=== PATIENT | female | born 2000 | race African-American/Black ===

== ENCOUNTER 2021-01-02 11:52 | Emergency (ER) | payer SELFPAY ==
[~2021-01-02] VITALS: Ht 165.1 cm; Wt 52.0 kg
[2021-01-02] MEDS ORDERED: SODIUM CHLORIDE 0.9% 1,000 ML IV ONE (12:15)
[2021-01-02 12:36] LABS: BASOPHILS % 0.4 % (0.0-2.0); EOSINOPHILS % 0.9 % (0.0-5.0); HEMATOCRIT. 36.2 % (36.0-48.0); HEMOGLOBIN. 12.8 g/dL (12.0-16.0); LYMPHOCYTES % 18.2 % (20.0-50.0); MEAN CORPUSCULAR HEMOGLOBIN 33.2 pg (28.0-32.0); MEAN CORPUSCULAR VOLUME 93.5 fL (81.0-99.0); MEAN PLATELET VOLUME 7.2 fl (7.4-10.4); MONOCYTES % 9.8 % (2.0-8.0); NEUTROPHILS % 70.7 % (40.0-76.0); PLATELET 241 x1000/uL (130-400); RED BLOOD CELL COUNT 3.87 mill/uL (4.2-5.4); RED CELL DISTRIBUTION WIDTH 13.5 % (11.6-14.6)
[2021-01-02 12:37] LABS: CLARITY URINE TURBID (CLEAR); COLOR URINE DK YELLOW (YELLOW); KETONES URINE NEGATIVE (NEGATIVE); LEUKOCYTE ESTERASE URINE 2+ (NEGATIVE); NITRITE URINE NEGATIVE (NEGATIVE); OCCULT BLOOD URINE 3+ (NEGATIVE); PROTEIN URINE 2+ (NEGATIVE); SPECIFIC GRAVITY URINE 1.018 (1.005-1.030); UROBILINOGEN URINE 0.2 E.U./dL (0.2-1.0)
[2021-01-02 12:42] LABS: CHLORIDE 108 mEq/L (98-107)
[2021-01-02 12:52] LABS: HCG SCREEN NEGATIVE
[2021-01-02 12:53] LABS: ETHANOL BLOOD < 10 mg/dL
[2021-01-02 12:54] LABS: CREATINE KINASE 794 IU/L (26-192)
[2021-01-02 13:08] LABS: METHADONE URINE SCREEN NEGATIVE (NEGATIVE)
[2021-01-02 13:09] LABS: OPIATES URINE SCREEN NEGATIVE (NEGATIVE)
[2021-01-02 13:10] LABS: *AMPHETAMINES SCREEN URINE NEGATIVE (NEGATIVE); *BARBITURATES SCREEN URINE NEGATIVE (NEGATIVE); *BENZODIAZEPINES SCREEN URINE NEGATIVE (NEGATIVE); *COCAINE SCREEN URINE NEGATIVE (NEGATIVE)
[2021-01-02 13:24] LABS: CANNABINOID URINE SCREEN PRESUMTIVE POSITIVE (NEGATIVE); PHENCYCLIDINE URINE SCREEN PRESUMTIVE POSITIVE (NEGATIVE)
[2021-01-02 13:54] VITALS: BP 120/75
[2021-01-02] MEDS ORDERED: AMOX-494 MT (13:55)
== END 2021-01-02 14:18 | disposition home or self-care (01) ==
LOC: ER 11:52
DX: T40.991A Poisoning by other psychodysleptics [hallucinogens], accidental (unintentional), initial encounter (principal); E86.0 Dehydration; N30.90 Cystitis, unspecified without hematuria; Y92.9 Unspecified place or not applicable; F31.9 Bipolar disorder, unspecified; F90.9 Attention-deficit hyperactivity disorder, unspecified type
CPT/HCPCS: 36415; 80053; 80305; 80307; 80320; 80329; 81003; 82550; 84703; 85025; 96360; 99283; J7030; G0480